=== PATIENT | female | born 1990 | race Caucasian/White ===

== ENCOUNTER 2018-02-27 05:48 | Observation (INO) ==
[2018-02-27] MEDS ORDERED: Estrogens Congugated Vag Cream w/app 30 GM Tube VAGINAL ONE (07:09)
[2018-02-27] MEDS ORDERED: Bupivacaine/Epinephrine Inj 0.25% 50 ML Vial ONE (07:09)
[2018-02-27] MEDS ORDERED: ceFAZolin 2 GM Premix Inj 2 GM/50 ML PIGGYBACK IV.SIG ONE (07:11)
[2018-02-27] MEDS ORDERED: Metoprolol Tartrate 25 MG Tablet PO SCH (07:15)
[2018-02-27] MEDS ORDERED: Chlorhexidine Gluconate 2% 1 Pack (2 Cloths) TOPICAL SCH (07:15)
[2018-02-27] MEDS ORDERED: ceFAZolin 2 GM IV; once IV.SIG SCH (07:30)
[2018-02-27] MEDS ORDERED: Sodium Chlor 0.9% Inj 500 ML IV.SIG SCH (08:00)
[2018-02-27] MEDS ORDERED: Sugammadex Inj 200 MG/2 ML Vial IV.PUSH ONE (10:09)
[2018-02-27] MEDS ORDERED: Zolpidem Tartrate 5 MG Tablet PO PRN (11:17)
--- NOTE | 2018-02-27 11:29 | P.PCNOB ---
Pre-Op/Post-Op Diagnoses Operation Date: 02/27/18 08:06 <No data on this case meets the specified criteria> zelaya syndrome Procedure: Procedures Operation Date: 02/27/18 08:06 Actual Procedures Side Surgeon p Laparoscopic ASSISTED VAGINAL HYSTERECTOMY, Bilateral salpingo-oophorectomy , EXAM UNDER ANESTHESIA Bilateral Hayde Bacon MD Envelope Patternmaker: Melanie Montalvo Estimated blood loss (ml): 500 Anesthesia type: General Complications: none Fluids: crystalloid Fluid amount (mL): 2,100 Urine output (mL): 400 Specimen: uterus, left tube & ovary, right tube & ovary, other (cervix) Findings: Minimal omental adhesions to anterior and left side wall. Uterus sounded to 9cm , uterus bogy, normal tubes and ovaries. Posterior cul de sac with evidence of endometriosis. Right broad ligament and uterosacrals with windows and hemorrhagic implants suggestive of endometriosis. Disposition: PACU Narrative: COUNTS: Correct x 3. PROCEDURE IN DETAIL: After review of informed consent, the patient was taken to the operating room, where general anesthesia was performed without complications. Ancef 2 g were given. SCDs were placed on ble. She was placed in the dorsal lithotomy position in Marques stirrups with arms tucked. The abdomen and perineum were prepped and draped in normal sterile fashion. An exam under anesthesia was performed. Patient appeared to have a rash over mons and denuded area under pannus; evidence of likely hidradenitis in bilateral upper thighs. Uterus was anteverted, 9 cm, vagina with discharge suggestive of BV prior to prep being performed. The Mcdaniel was then placed in the sterile fashion, placed to dependent drainage. A bivalve speculum was placed in the vagina. A single-tooth tenaculum was placed on the anterior lip of the cervix. The uterus was sounded to 9 cm, a tumi uterine manipulator was introduce and inflated. The single-tooth tenaculum was removed. Gloves were changed. Attention was placed to the abdomen. A 5 mm skin incision was made with a scalpel in the umbilical fold after infusion of marcaine 0.25% with epi. A direct visual entry was performed. After abdominal entry was confirmed, the abdomen was insufflated. After injecting with Marcaine 0.25% with epinephrine, two lower quadrant 5 mm incisions were made with a scalpel, and two accessory trochars were placed under direct visualization at prior lsc sites. There was an omental adhesion on the anterior abdominal wall to the left pelvic side wall , this was taken down with the harmonic. The abdomen was then inspected. Intraoperative findings, of note, there was evidence of likely endometriosis on posterior cul de sac, uterosacral ligament and round ligament on the left. Normal liver edge. Gall bladder and appendix not visualized. Sigmoid colon more midline than usual, likely due to prior colectomy. The Harmonic was used during the case. The harmonic was used to hydrodesicate and transect the infundibulopelvic ligament toward the corneal region to perform salpingo-opherectomy. This was performed bilaterally. The round ligament was transected with the Harmonic. The anterior leaf of the broad ligament was transected in a medial-caudal fashion to develop the bladder flap bilaterally. Serial bites were taken down to the level of the uterine artery bilaterally. On the left side, uterine artery was hydrodesicated with the Harmonic; min bleeding noted, reinforced with Klegiovannainger. All instruments were removed from the abdomen. The abdomen was desufflated. Attention was turned to the pelvis. The uterine manipulator was removed. A weighted speculum was placed in the vagina and a Lothian anteriorly. The cervix was grasped with a single-tooth tenaculum. Marcaine 0.25% with epinephrine was injected in a circumferential fashion around the anterior portion of the cervix. The cervix was circumscribed with the Bovie. The anterior cul-de-sac was entered with Metzenbaum scissors. A aruna was placed in the anterior cul -de-sac to elevate and protect the bladder. The posterior cul-de-sac was entered with Reyna scissors. The peritoneum was tagged to the posterior cul-de- sac. The uterosacral ligaments bilaterally were clamped with a Louie clamp. These were cut, suture ligated with a fixation stitch of 0 vicryl and tagged. Serial bites were taken to the cardinal ligaments to deliver the specimen. There was good hemostasis noted. The posterior peritoneum and the vaginal mucosa were reapproxiamted in a running locked fashion with 0 Vicryl. The cuff was closed in a vertical fashion with 0 Vicryl in a running locked fashion. The vagina was irrigated and noted to be hemostatic. Gloves were changed again and attention was turned to the abdomen. The abdomen was insufflated and inspection was performed again. Irrigation and suction performed. Magi was placed on all pedicles. All instruments were removed. The abdomen was desufflated. The trocars were removed after five deep Valsalva breaths were given. The skin was closed with 4-0 Monocryl. Steri-Strips were applied. The patient tolerated the procedure well. Anesthesia was reversed without complication. She was taken to PACU in stable condition.
[2018-02-27] MEDS ORDERED: Phenylephrine/NS 1000 MCG/10ML Syringe IV.PUSH ONE (12:00)
[2018-02-27] MEDS ORDERED: Neostigmine Inj 5 MG/5 ML Syringe IV.PUSH ONE (12:00)
[2018-02-27] MEDS ORDERED: Glycopyrrolate Inj 1 MG/5 ML Syringe IV.PUSH ONE (12:00)
[2018-02-27] MEDS ORDERED: Lidocaine PF 1% Inj 5 ML Syringe INFILTRATN ONE (12:00)
[2018-02-27] MEDS ORDERED: Sodium Chlor 0.9% Inj 100 ML ONE (12:06)
[2018-02-27] MEDS: Clindamycin 900 mg/NS Premix 900 MG/50 ML PIGGYBACK IV.SIG SCH ×2 (12:13→20:40)
[2018-02-27] MEDS: Ketorolac Inj 30 MG/ML (IVP) Vial IV.PUSH SCH ×2 (12:14→17:32)
[2018-02-27] MEDS ORDERED: Morphine Inj 4 MG/ML Vial ONE (12:17)
[2018-02-27] MEDS ORDERED: fentaNYL Citrate Inj 100 MCG/2 ML Ampul ONE (12:17)
[2018-02-27] MEDS ORDERED: *Ondansetron Inj 4 MG/2 ML Vial PERIprocedural Use ONLY ONE (12:26)
[2018-02-27] MEDS: Clindamycin Inj 600 MG/4 ML Vial ONE ×2 (12:33→12:48)
[2018-02-27] MEDS ORDERED: *morphine SULFATE 10 MG/ML PERIprocedure ONLY ONE (12:38)
[2018-02-27] MEDS ORDERED: HYDROmorphone PF Inj 2 MG/ML Vial ONE (12:41)
[2018-02-27] MEDS ORDERED: *Promethazine Inj 25 MG/ML Vial PERIprocedural use ONLY ONE (13:11)
[2018-02-27 20:04] VITALS: RESP 18
[2018-02-27] MEDS: metroNIDAZOLE 500 MG Tablet PO SCH (20:40)
[2018-02-27] MEDS: Docusate Sodium 100 MG Capsule PO SCH (20:43)
[2018-02-28] MEDS: Ketorolac Inj 30 MG/ML (IVP) Vial IV.PUSH SCH ×2 (00:14→06:17)
[2018-02-28] MEDS: Clindamycin 900 mg/NS Premix 900 MG/50 ML PIGGYBACK IV.SIG SCH (04:48)
[2018-02-28 05:56] LABS: Baso % (Auto) 0.1 % (0.0-2.0); Eos % (Auto) 0.1 % (0.0-4.0); Hematocrit 37.8 % (35.0-46.0); Hemoglobin 12.8 gm/dL (11.6-15.3); Lymph # (Auto) 1.1 th/mm3 (1.0-4.8); Lymph % (Auto) 11.7 % (9.0-44.0); Mean Corpuscular HGB Conc 33.9 % (32.0-36.0); Mean Corpuscular Hemoglobin 31.8 pg (27.0-34.0); Mean Corpuscular Volume 93.7 fL (80.0-100.0); Mono # (Auto) 0.6 th/mm3 (0.0-0.9); Mono % (Auto) 7.2 % (0.0-8.0); Neut # (Auto) 7.2 th/mm3 (1.8-7.7); Neut % (Auto) 80.9 % (16.0-70.0); Platelet Count 184 th/mm3 (150-450); Red Blood Count 4.03 mil/mm3 (4.00-5.30); Red Cell Distribution Width 14.1 % (11.6-17.2); White Blood Count 8.9 th/mm3 (4.0-11.0)
[2018-02-28 08:01] VITALS: BP 102/63; PULSE 70; TEMP 98.1; O2SAT 100
--- NOTE | 2018-02-28 08:34 | P.PNOB ---
Assessment and Plan - Postoperative Procedures Operation Date: 02/27/18 08:06 Actual Procedures Side Surgeon p Laparoscopic ASSISTED VAGINAL HYSTERECTOMY, EXAM UNDER ANESTHESIA Not Applicable Hayde Bacon MD Postoperative day: 1 (once pt voids, will be able to d/c home. ) Postoperative status: doing well Postoperative plan: routine post-op care, ambulate, discharge - Time Spent With Patient Total time spent is greater than 50% in coordination of care (as documented) at patient's floor/unit and/or counseling patient: less than 15 minutes Subjective Subjective: patient has no complaints, patient desires discharge, pain is well controlled, patient is tolerating oral intake Physical Exam Vital signs: Temp Pulse Resp BP Pulse Ox 98.1 F 70 18 102/63 100 02/28/18 08:00 02/28/18 08:00 02/28/18 08:00 02/28/18 08:00 02/28/18 08:00 - Constitutional no acute distress, morbidly obese - Routine Respiratory Exam Absent: accessory muscle use, decreased breath sounds, respiratory distress, distant breath sounds, diminished air movement - Routine Abdominal Exam Present: soft, normoactive bowel sounds, surgical scars (dressing in place, c/d/ i) - Detailed Neurological Exam: Coma Scale Eye Opening: Spontaneous Verbal Response: Oriented - Urinary Catheter Management Indwelling Urethral Catheter Cath placed during this visit: no 100 Cath placed during this visit: yes Urethral indwelling: No Insertion date: 02/27/18 Results - Labs CBC & Chem 7: 02/28/18 05:09 Labs: Laboratory Results - last 24 hr 02/27/18 02/27/18 02/28/18 07:20 07:25 05:09 WBC 8.9 RBC 4.03 Hgb 12.8 Hct 37.8 MCV 93.7 MCH 31.8 MCHC 33.9 RDW 14.1 Plt Count 184 MPV 8.0 Neut % (Auto) 80.9 H Lymph % (Auto) 11.7 Lander % (Auto) 7.2 Eos % (Auto) 0.1 Baso % (Auto) 0.1 Neut # (Auto) 7.2 Lymph # (Auto) 1.1 Lander # (Auto) 0.6 Eos # (Auto) 0.0 Baso # (Auto) 0.0 WBC Differential . Differential Comment Auto diff final Antibody Screen Negative MTS Gel Crossmatch See Detail
[2018-02-28] MEDS: Docusate Sodium 100 MG Capsule PO SCH (08:49)
[2018-02-28] MEDS: metroNIDAZOLE 500 MG Tablet PO SCH (08:49)
--- NOTE | 2018-02-28 08:59 | ECG ---
Date Performed: 02/27/2018 Time Performed: 13:06:16 PTAGE: 27 years EKG: Sinus rhythm WITH SINUS ARRHYTHMIA NORMAL ECG NO PREVIOUS TRACING DOCTOR: Neeraj Castano Interpretating Date/Time 02/28/2018 08:58:23
[2018-02-28] MEDS ORDERED: Ibuprofen 600 MG Tablet PO PRN (11:17)
== END 2018-02-28 11:24 | disposition home or self-care (01) ==
LOC: HSDI 05:48 → HSDC 05:48 → H1EA 05:48
PROVIDERS: ADMIT Obstetrics & Gynecology; ATTEND Obstetrics & Gynecology